=== PATIENT | female | born 1980 | race Two or more races ===

== ENCOUNTER 2020-08-15 13:05 | Emergency (ER) | payer OTHER ==
[~2020-08-15] VITALS: Ht 160 cm; Wt 61.2 kg
[~2020-08-15 13:05] MED LIST: AMOX1TAB12 PO; N
[2020-08-15] MEDS ORDERED: LEVOTHYROXINE25 MCG PO (13:26)
== END 2020-08-15 19:39 | disposition home or self-care (01) ==
LOC: ER 13:05
DX: N83.291 Other ovarian cyst, right side (principal); R10.31 Right lower quadrant pain